=== PATIENT | male | born 1950 | race Caucasian/White ===

== ENCOUNTER 2019-12-22 18:25 | Inpatient (IN) | payer MEDICARE, MEDICAID ==
[~2019-12-22] VITALS: Ht 167.6 cm; Wt 102.1 kg
[~2019-12-22 18:25] MED LIST: AMLO10TA80 MT; AMLO5TAB88 PO; ASPI-1160 PO; CLOP75TA15 PO; EMPA10TA MT; GLIP5TAB3 MT; LIP40 PO; NITR100C MT
[2019-12-22 20:00] VITALS: BP 124/66
[2019-12-22] MEDS ORDERED: DEXTROSE 50% WATER 50ML SYRINGE IV PRN (20:30)
[2019-12-22 20:39] VITALS: BP 175/109
[2019-12-22] MEDS: ENOXAPARIN 40MG/0.4ML SYR SUBCUT SCH (20:59)
[2019-12-22] MEDS: ATORVASTATIN CALCIUM 40MG TABLET PO SCH (20:59)
[2019-12-22] MEDS: BLOOD SUGAR DIAGNOSTIC STRIP TEST SCH (21:05)
[2019-12-22] MEDS: INSULIN LISPRO 100 UNITS/ML SUBCUT SCH (22:27)
[2019-12-23] MEDS: INSULIN LISPRO 100 UNITS/ML SUBCUT SCH ×4 (06:39→22:04)
[2019-12-23] MEDS: BLOOD SUGAR DIAGNOSTIC STRIP TEST SCH ×4 (06:39→21:49)
[2019-12-23 08:00] VITALS: BP 161/44
[2019-12-23 09:00] VITALS: BP 149/54
[2019-12-23] MEDS: ASPIRIN 81MG TABLET PO SCH (09:02)
[2019-12-23] MEDS: CLOPIDOGREL 75MG TABLET PO SCH (09:02)
[2019-12-23] MEDS: ENOXAPARIN 40MG/0.4ML SYR SUBCUT SCH (09:02)
[2019-12-23] MEDS: AMLODIPINE 5MG TABLET PO SCH (09:03)
[2019-12-23] MEDS ORDERED: ENOXAPARIN 30MG/0.3ML SYR SUBCUT SCH (16:01)
[2019-12-23] MEDS: DOCUSATE SODIUM 100MG CAPSULE PO SCH (17:29)
[2019-12-23 20:00] VITALS: BP 154/88
[2019-12-23] MEDS: ENOXAPARIN 30MG/0.3ML SYR SUBCUT SCH (21:48)
[2019-12-23] MEDS: ATORVASTATIN CALCIUM 40MG TABLET PO SCH (21:48)
[2019-12-24 06:31] LABS: CHLORIDE 106 mEq/L (98-107)
[2019-12-24] MEDS: BLOOD SUGAR DIAGNOSTIC STRIP TEST SCH ×4 (06:57→21:21)
[2019-12-24] MEDS: INSULIN LISPRO 100 UNITS/ML SUBCUT SCH ×4 (06:57→21:42)
[2019-12-24 07:00] VITALS: BP 147/84
[2019-12-24] MEDS: AMLODIPINE 5MG TABLET PO SCH (08:14)
[2019-12-24] MEDS: CLOPIDOGREL 75MG TABLET PO SCH (08:14)
[2019-12-24] MEDS: ASPIRIN 81MG TABLET PO SCH (08:14)
[2019-12-24] MEDS: ENOXAPARIN 30MG/0.3ML SYR SUBCUT SCH ×2 (08:14→21:20)
[2019-12-24] MEDS: DOCUSATE SODIUM 100MG CAPSULE PO SCH ×2 (08:14→17:20)
[2019-12-24] MEDS: METFORMIN HCL 500MG TABLET PO SCH ×2 (08:16→17:21)
[2019-12-24 20:00] VITALS: BP 164/87
[2019-12-24] MEDS: ATORVASTATIN CALCIUM 40MG TABLET PO SCH (21:20)
[2019-12-25] MEDS: BLOOD SUGAR DIAGNOSTIC STRIP TEST SCH ×4 (06:17→21:31)
[2019-12-25] MEDS: INSULIN LISPRO 100 UNITS/ML SUBCUT SCH ×4 (07:02→21:35)
[2019-12-25 07:30] VITALS: BP 135/81
[2019-12-25] MEDS: DOCUSATE SODIUM 100MG CAPSULE PO SCH ×2 (08:13→16:49)
[2019-12-25] MEDS: CLOPIDOGREL 75MG TABLET PO SCH (08:13)
[2019-12-25] MEDS: ASPIRIN 81MG TABLET PO SCH (08:18)
[2019-12-25] MEDS: ENOXAPARIN 30MG/0.3ML SYR SUBCUT SCH ×2 (08:18→21:27)
[2019-12-25] MEDS: AMLODIPINE 5MG TABLET PO SCH (08:18)
[2019-12-25] MEDS: METFORMIN HCL 500MG TABLET PO SCH ×2 (08:18→16:49)
[2019-12-25] MEDS ORDERED: NA PHOS,M-B/NA PHOS,DI-BA ENEMA 118ML PR NR (17:00)
[2019-12-25] MEDS ORDERED: BISACODYL 10MG SUPP PR PRN (17:00)
[2019-12-25] MEDS: BISACODYL 5MG TABLET PO PRN (18:04)
[2019-12-25 20:00] VITALS: BP 136/77
[2019-12-25] MEDS: ATORVASTATIN CALCIUM 40MG TABLET PO SCH (21:26)
[2019-12-26] MEDS: BLOOD SUGAR DIAGNOSTIC STRIP TEST SCH ×4 (06:20→20:49)
[2019-12-26] MEDS: INSULIN LISPRO 100 UNITS/ML SUBCUT SCH ×4 (06:22→20:52)
[2019-12-26 08:00] VITALS: BP 139/84
[2019-12-26] MEDS: ASPIRIN 81MG TABLET PO SCH (09:22)
[2019-12-26] MEDS: AMLODIPINE 5MG TABLET PO SCH (09:23)
[2019-12-26] MEDS: METFORMIN HCL 500MG TABLET PO SCH ×2 (09:24→17:32)
[2019-12-26] MEDS: CLOPIDOGREL 75MG TABLET PO SCH (09:24)
[2019-12-26] MEDS: DOCUSATE SODIUM 100MG CAPSULE PO SCH ×2 (09:24→17:32)
[2019-12-26] MEDS: ENOXAPARIN 30MG/0.3ML SYR SUBCUT SCH ×2 (09:31→20:33)
[2019-12-26 20:00] VITALS: BP 157/97
[2019-12-26] MEDS: ATORVASTATIN CALCIUM 40MG TABLET PO SCH (20:32)
[2019-12-27] MEDS: BLOOD SUGAR DIAGNOSTIC STRIP TEST SCH ×4 (06:29→20:51)
[2019-12-27] MEDS: INSULIN LISPRO 100 UNITS/ML SUBCUT SCH ×4 (06:39→20:52)
[2019-12-27 08:00] VITALS: BP 154/102
[2019-12-27] MEDS: CLOPIDOGREL 75MG TABLET PO SCH (08:38)
[2019-12-27] MEDS: DOCUSATE SODIUM 100MG CAPSULE PO SCH ×2 (08:38→16:57)
[2019-12-27] MEDS: ASPIRIN 81MG TABLET PO SCH (08:38)
[2019-12-27] MEDS: METFORMIN HCL 500MG TABLET PO SCH ×2 (08:38→16:57)
[2019-12-27] MEDS: AMLODIPINE 5MG TABLET PO SCH (08:39)
[2019-12-27] MEDS: ENOXAPARIN 30MG/0.3ML SYR SUBCUT SCH ×2 (08:39→20:48)
[2019-12-27] MEDS: BISACODYL 5MG TABLET PO PRN (16:57)
[2019-12-27] MEDS ORDERED: CLONIDINE 0.1MG TABLET PO PRN (18:15)
[2019-12-27 20:00] VITALS: BP 137/83
[2019-12-27] MEDS: ATORVASTATIN CALCIUM 40MG TABLET PO SCH (20:48)
[2019-12-28] MEDS: BLOOD SUGAR DIAGNOSTIC STRIP TEST SCH ×4 (06:15→21:00)
[2019-12-28] MEDS: INSULIN LISPRO 100 UNITS/ML SUBCUT SCH ×4 (06:50→22:27)
[2019-12-28 07:13] LABS: BASOPHILS % 0.7 % (0.0-2.0); EOSINOPHILS % 1.6 % (0.0-5.0); HEMATOCRIT. 46.5 % (42.0-52.0); LYMPHOCYTES % 23.3 % (20.0-50.0); MEAN CORPUSCULAR HEMOGLOBIN 30.2 pg (28.0-32.0); MEAN CORPUSCULAR VOLUME 87.8 fL (80.0-94.0); MONOCYTES % 11.9 % (2.0-8.0); NEUTROPHILS % 62.5 % (40.0-76.0); PLATELET 368 x1000/uL (130-400); RED BLOOD CELL COUNT 5.29 mill/uL (4.7-6.1); RED CELL DISTRIBUTION WIDTH 13.4 % (11.6-14.6)
[2019-12-28 07:52] LABS: CHLORIDE 106 mEq/L (98-107)
[2019-12-28 08:12] VITALS: BP 144/84
[2019-12-28] MEDS: ASPIRIN 81MG TABLET PO SCH (08:28)
[2019-12-28] MEDS: CLOPIDOGREL 75MG TABLET PO SCH (08:28)
[2019-12-28] MEDS: METFORMIN HCL 500MG TABLET PO SCH ×2 (08:28→17:19)
[2019-12-28] MEDS: AMLODIPINE 5MG TABLET PO SCH (08:28)
[2019-12-28] MEDS: DOCUSATE SODIUM 100MG CAPSULE PO SCH ×2 (08:28→17:19)
[2019-12-28] MEDS: ENOXAPARIN 30MG/0.3ML SYR SUBCUT SCH ×2 (08:29→22:24)
[2019-12-28 20:00] VITALS: BP 137/84
[2019-12-28] MEDS: ATORVASTATIN CALCIUM 40MG TABLET PO SCH (22:24)
[2019-12-29] MEDS: BLOOD SUGAR DIAGNOSTIC STRIP TEST SCH ×4 (06:49→21:57)
[2019-12-29] MEDS: INSULIN LISPRO 100 UNITS/ML SUBCUT SCH ×4 (06:56→21:00)
[2019-12-29 07:43] VITALS: BP 139/79
[2019-12-29] MEDS: ASPIRIN 81MG TABLET PO SCH (08:29)
[2019-12-29] MEDS: METFORMIN HCL 500MG TABLET PO SCH ×2 (08:29→16:44)
[2019-12-29] MEDS: ENOXAPARIN 30MG/0.3ML SYR SUBCUT SCH ×2 (08:29→21:58)
[2019-12-29] MEDS: CLOPIDOGREL 75MG TABLET PO SCH (08:29)
[2019-12-29] MEDS: DOCUSATE SODIUM 100MG CAPSULE PO SCH ×2 (08:29→16:44)
[2019-12-29] MEDS: AMLODIPINE 5MG TABLET PO SCH (08:30)
[2019-12-29 20:00] VITALS: BP 119/74
[2019-12-29] MEDS: ATORVASTATIN CALCIUM 40MG TABLET PO SCH (21:56)
[2019-12-30] MEDS: BLOOD SUGAR DIAGNOSTIC STRIP TEST SCH ×4 (06:12→20:58)
[2019-12-30] MEDS: INSULIN LISPRO 100 UNITS/ML SUBCUT SCH ×4 (06:25→21:08)
[2019-12-30 08:23] VITALS: BP 128/83
[2019-12-30] MEDS: ASPIRIN 81MG TABLET PO SCH (08:59)
[2019-12-30] MEDS: METFORMIN HCL 500MG TABLET PO SCH ×2 (08:59→16:39)
[2019-12-30] MEDS: CLOPIDOGREL 75MG TABLET PO SCH (08:59)
[2019-12-30] MEDS: DOCUSATE SODIUM 100MG CAPSULE PO SCH ×2 (09:00→16:39)
[2019-12-30] MEDS: AMLODIPINE 5MG TABLET PO SCH (09:01)
[2019-12-30] MEDS: ENOXAPARIN 30MG/0.3ML SYR SUBCUT SCH ×2 (09:01→20:58)
[2019-12-30 20:00] VITALS: BP 134/80
[2019-12-30] MEDS: ATORVASTATIN CALCIUM 40MG TABLET PO SCH (20:58)
[2019-12-31] MEDS: BLOOD SUGAR DIAGNOSTIC STRIP TEST SCH ×4 (05:47→20:53)
[2019-12-31] MEDS: INSULIN LISPRO 100 UNITS/ML SUBCUT SCH ×4 (05:54→20:53)
[2019-12-31 08:26] VITALS: BP 129/79
[2019-12-31] MEDS: AMLODIPINE 5MG TABLET PO SCH (09:48)
[2019-12-31] MEDS: DOCUSATE SODIUM 100MG CAPSULE PO SCH ×2 (09:48→16:19)
[2019-12-31] MEDS: CLOPIDOGREL 75MG TABLET PO SCH (09:48)
[2019-12-31] MEDS: ASPIRIN 81MG TABLET PO SCH (09:48)
[2019-12-31] MEDS: METFORMIN HCL 500MG TABLET PO SCH ×2 (09:48→16:20)
[2019-12-31] MEDS: ENOXAPARIN 30MG/0.3ML SYR SUBCUT SCH ×2 (09:49→20:39)
[2019-12-31 20:00] VITALS: BP 116/83
[2019-12-31] MEDS: ATORVASTATIN CALCIUM 40MG TABLET PO SCH (20:39)
[2020-01-01] MEDS: BLOOD SUGAR DIAGNOSTIC STRIP TEST SCH ×4 (06:31→21:43)
[2020-01-01] MEDS: INSULIN LISPRO 100 UNITS/ML SUBCUT SCH ×4 (06:39→22:55)
[2020-01-01 08:00] VITALS: BP 138/78
[2020-01-01] MEDS: ENOXAPARIN 30MG/0.3ML SYR SUBCUT SCH ×2 (09:23→21:42)
[2020-01-01] MEDS: AMLODIPINE 5MG TABLET PO SCH (09:23)
[2020-01-01] MEDS: CLOPIDOGREL 75MG TABLET PO SCH (09:24)
[2020-01-01] MEDS: DOCUSATE SODIUM 100MG CAPSULE PO SCH ×2 (09:24→17:19)
[2020-01-01] MEDS: ASPIRIN 81MG TABLET PO SCH (09:24)
[2020-01-01] MEDS: METFORMIN HCL 500MG TABLET PO SCH ×2 (09:24→17:19)
[2020-01-01 20:00] VITALS: BP 163/84
[2020-01-01] MEDS: BISACODYL 5MG TABLET PO PRN ×2 (21:42→21:57)
[2020-01-01] MEDS: ATORVASTATIN CALCIUM 40MG TABLET PO SCH (21:43)
[2020-01-02] MEDS: BLOOD SUGAR DIAGNOSTIC STRIP TEST SCH ×4 (06:32→21:40)
[2020-01-02] MEDS: INSULIN LISPRO 100 UNITS/ML SUBCUT SCH ×4 (07:05→21:00)
[2020-01-02 07:30] VITALS: BP 121/72
[2020-01-02] MEDS: DOCUSATE SODIUM 100MG CAPSULE PO SCH ×2 (08:18→17:42)
[2020-01-02] MEDS: CLOPIDOGREL 75MG TABLET PO SCH (08:18)
[2020-01-02] MEDS: ASPIRIN 81MG TABLET PO SCH (08:18)
[2020-01-02] MEDS: METFORMIN HCL 500MG TABLET PO SCH ×2 (08:19→17:42)
[2020-01-02] MEDS: AMLODIPINE 5MG TABLET PO SCH (08:19)
[2020-01-02] MEDS: ENOXAPARIN 30MG/0.3ML SYR SUBCUT SCH ×2 (08:19→21:40)
[2020-01-02 20:00] VITALS: BP 131/74
[2020-01-02] MEDS: ATORVASTATIN CALCIUM 40MG TABLET PO SCH (21:37)
[2020-01-03] MEDS: BLOOD SUGAR DIAGNOSTIC STRIP TEST SCH ×4 (06:57→20:54)
[2020-01-03] MEDS: INSULIN LISPRO 100 UNITS/ML SUBCUT SCH ×4 (06:57→21:03)
[2020-01-03 08:14] VITALS: BP 163/93
[2020-01-03] MEDS: METFORMIN HCL 500MG TABLET PO SCH ×2 (08:55→17:23)
[2020-01-03] MEDS: CLOPIDOGREL 75MG TABLET PO SCH (08:55)
[2020-01-03] MEDS: AMLODIPINE 5MG TABLET PO SCH (08:55)
[2020-01-03] MEDS: ASPIRIN 81MG TABLET PO SCH (08:55)
[2020-01-03] MEDS: ENOXAPARIN 30MG/0.3ML SYR SUBCUT SCH ×2 (08:55→20:54)
[2020-01-03] MEDS: DOCUSATE SODIUM 100MG CAPSULE PO SCH ×2 (08:55→17:23)
[2020-01-03 14:28] LABS: BG BASE EXCESS 1.4 mmol/L (-2.0-2.0); BG CARBOXYHEMOGLOBIN 0.6 % (0.5-1.5); BG DEOXYHEMOGLOBIN 3.4 % (0.0-5.0); BG FRACTION INSPIRED OXYGEN 21; BG HCO3 ACT 24.3 mmol/L (22.0-26.0); BG METHEMOGLOBIN 0.3 % (0.0-1.5); BG OXYGEN SATURATION 96.6 % (92.0-98.5); BG OXYHEMOGLOBIN 95.7 % (94.0-97.0); BG PCO2 33.8 mmHg (35.0-45.0); BG PH 7.475 (7.350-7.450); BG PO2 83.6 mmHg (75.0-100.0); BG SAMPLE SITE LEFT RADIAL; BG TOTAL HEMOGLOBIN 15.5 g/dL (12.0-18.0); BG VENT MODE ROOM AIR
[2020-01-03 20:00] VITALS: BP 136/74
[2020-01-03] MEDS: ATORVASTATIN CALCIUM 40MG TABLET PO SCH (20:53)
[2020-01-04] MEDS: BLOOD SUGAR DIAGNOSTIC STRIP TEST SCH ×4 (06:06→21:25)
[2020-01-04] MEDS: INSULIN LISPRO 100 UNITS/ML SUBCUT SCH ×4 (06:09→21:00)
[2020-01-04 08:19] VITALS: BP 131/108
[2020-01-04] MEDS: CLOPIDOGREL 75MG TABLET PO SCH (09:05)
[2020-01-04] MEDS: ASPIRIN 81MG TABLET PO SCH (09:05)
[2020-01-04] MEDS: AMLODIPINE 5MG TABLET PO SCH (09:05)
[2020-01-04] MEDS: METFORMIN HCL 500MG TABLET PO SCH ×2 (09:06→17:20)
[2020-01-04] MEDS: DOCUSATE SODIUM 100MG CAPSULE PO SCH ×2 (09:06→17:21)
[2020-01-04] MEDS: ENOXAPARIN 30MG/0.3ML SYR SUBCUT SCH ×2 (09:06→21:11)
[2020-01-04 20:00] VITALS: BP 134/75
[2020-01-04] MEDS: ATORVASTATIN CALCIUM 40MG TABLET PO SCH (21:10)
[2020-01-05] MEDS: BLOOD SUGAR DIAGNOSTIC STRIP TEST SCH ×4 (05:49→21:48)
[2020-01-05] MEDS: INSULIN LISPRO 100 UNITS/ML SUBCUT SCH ×4 (05:49→21:00)
[2020-01-05 08:01] VITALS: BP 145/83
[2020-01-05] MEDS: CLOPIDOGREL 75MG TABLET PO SCH (08:26)
[2020-01-05] MEDS: ENOXAPARIN 30MG/0.3ML SYR SUBCUT SCH ×2 (08:26→21:42)
[2020-01-05] MEDS: DOCUSATE SODIUM 100MG CAPSULE PO SCH ×2 (08:26→16:15)
[2020-01-05] MEDS: METFORMIN HCL 500MG TABLET PO SCH ×2 (08:26→16:15)
[2020-01-05] MEDS: AMLODIPINE 5MG TABLET PO SCH (08:26)
[2020-01-05] MEDS: ASPIRIN 81MG TABLET PO SCH (08:26)
[2020-01-05 20:00] VITALS: BP 142/77
[2020-01-05] MEDS: ATORVASTATIN CALCIUM 40MG TABLET PO SCH (21:42)
[2020-01-06 05:15] LABS: CHLORIDE 106 mEq/L (98-107)
[2020-01-06] MEDS: INSULIN LISPRO 100 UNITS/ML SUBCUT SCH ×4 (05:42→20:46)
[2020-01-06] MEDS: BLOOD SUGAR DIAGNOSTIC STRIP TEST SCH ×4 (05:42→20:41)
[2020-01-06 06:27] LABS: BASOPHILS % 0.9 % (0.0-2.0); EOSINOPHILS % 2.3 % (0.0-5.0); HEMATOCRIT. 44.1 % (42.0-52.0); HEMOGLOBIN. 15.5 g/dL (14.0-18.0); LYMPHOCYTES % 21.9 % (20.0-50.0); MEAN CORPUSCULAR HEMOGLOBIN 30.6 pg (28.0-32.0); MEAN CORPUSCULAR VOLUME 86.9 fL (80.0-94.0); MEAN PLATELET VOLUME 8.5 fl (7.4-10.4); MONOCYTES % 13.9 % (2.0-8.0); PLATELET 358 x1000/uL (130-400); RED BLOOD CELL COUNT 5.08 mill/uL (4.7-6.1); RED CELL DISTRIBUTION WIDTH 13.3 % (11.6-14.6)
[2020-01-06 08:20] VITALS: BP 137/94
[2020-01-06] MEDS: CLOPIDOGREL 75MG TABLET PO SCH (09:06)
[2020-01-06] MEDS: ASPIRIN 81MG TABLET PO SCH (09:06)
[2020-01-06] MEDS: DOCUSATE SODIUM 100MG CAPSULE PO SCH ×2 (09:06→17:22)
[2020-01-06] MEDS: ENOXAPARIN 30MG/0.3ML SYR SUBCUT SCH ×2 (09:06→20:41)
[2020-01-06] MEDS: AMLODIPINE 5MG TABLET PO SCH (09:06)
[2020-01-06] MEDS: METFORMIN HCL 500MG TABLET PO SCH ×2 (09:06→17:22)
[2020-01-06 20:00] VITALS: BP 131/76
[2020-01-06] MEDS: ATORVASTATIN CALCIUM 40MG TABLET PO SCH (20:40)
[2020-01-07] MEDS: BLOOD SUGAR DIAGNOSTIC STRIP TEST SCH ×4 (05:44→20:36)
[2020-01-07] MEDS: CLOPIDOGREL 75MG TABLET PO SCH (08:15)
[2020-01-07] MEDS: AMLODIPINE 5MG TABLET PO SCH (08:16)
[2020-01-07] MEDS: ENOXAPARIN 30MG/0.3ML SYR SUBCUT SCH ×2 (08:16→20:35)
[2020-01-07] MEDS: METFORMIN HCL 500MG TABLET PO SCH ×2 (08:16→16:36)
[2020-01-07] MEDS: DOCUSATE SODIUM 100MG CAPSULE PO SCH ×2 (08:16→17:18)
[2020-01-07] MEDS: ASPIRIN 81MG TABLET PO SCH (08:16)
[2020-01-07 08:29] VITALS: BP 130/92
[2020-01-07] MEDS: INSULIN LISPRO 100 UNITS/ML SUBCUT SCH ×5 (09:00→20:41)
[2020-01-07 10:59] LABS: CHLORIDE 105 mEq/L (98-107)
[2020-01-07 11:14] LABS: BASOPHILS % 0.9 % (0.0-2.0); EOSINOPHILS % 1.4 % (0.0-5.0); HEMATOCRIT. 45.9 % (42.0-52.0); HEMOGLOBIN. 15.8 g/dL (14.0-18.0); LYMPHOCYTES % 23.6 % (20.0-50.0); MEAN CORPUSCULAR HEMOGLOBIN 29.9 pg (28.0-32.0); MEAN CORPUSCULAR VOLUME 86.8 fL (80.0-94.0); MONOCYTES % 12.2 % (2.0-8.0); NEUTROPHILS % 61.9 % (40.0-76.0); PLATELET 368 x1000/uL (130-400); RED BLOOD CELL COUNT 5.29 mill/uL (4.7-6.1); RED CELL DISTRIBUTION WIDTH 13.1 % (11.6-14.6)
[2020-01-07 20:00] VITALS: BP 122/77
[2020-01-07] MEDS: ATORVASTATIN CALCIUM 40MG TABLET PO SCH (20:35)
[2020-01-07] MEDS: BISACODYL 5MG TABLET PO PRN (20:36)
[2020-01-08] MEDS: BLOOD SUGAR DIAGNOSTIC STRIP TEST SCH ×4 (06:16→21:31)
[2020-01-08] MEDS: INSULIN LISPRO 100 UNITS/ML SUBCUT SCH ×4 (06:19→21:00)
[2020-01-08 07:57] VITALS: BP 128/82
[2020-01-08] MEDS: BISACODYL 5MG TABLET PO PRN (08:25)
[2020-01-08] MEDS: DOCUSATE SODIUM 100MG CAPSULE PO SCH ×2 (08:25→17:08)
[2020-01-08] MEDS: METFORMIN HCL 500MG TABLET PO SCH ×2 (08:25→17:08)
[2020-01-08] MEDS: ASPIRIN 81MG TABLET PO SCH (08:25)
[2020-01-08] MEDS: AMLODIPINE 5MG TABLET PO SCH (08:25)
[2020-01-08] MEDS: CLOPIDOGREL 75MG TABLET PO SCH (08:25)
[2020-01-08] MEDS: ENOXAPARIN 30MG/0.3ML SYR SUBCUT SCH ×2 (08:27→21:30)
[2020-01-08 20:00] VITALS: BP 113/74
[2020-01-08] MEDS: ATORVASTATIN CALCIUM 40MG TABLET PO SCH (21:30)
[2020-01-09] MEDS: BLOOD SUGAR DIAGNOSTIC STRIP TEST SCH ×4 (06:30→21:06)
[2020-01-09 08:00] VITALS: BP 130/86
[2020-01-09] MEDS: ENOXAPARIN 30MG/0.3ML SYR SUBCUT SCH ×2 (08:13→20:35)
[2020-01-09] MEDS: DOCUSATE SODIUM 100MG CAPSULE PO SCH ×2 (08:13→17:33)
[2020-01-09] MEDS: METFORMIN HCL 500MG TABLET PO SCH ×2 (08:13→17:33)
[2020-01-09] MEDS: ASPIRIN 81MG TABLET PO SCH (08:14)
[2020-01-09] MEDS: CLOPIDOGREL 75MG TABLET PO SCH (08:14)
[2020-01-09] MEDS: AMLODIPINE 5MG TABLET PO SCH (08:14)
[2020-01-09] MEDS: INSULIN LISPRO 100 UNITS/ML SUBCUT SCH ×4 (09:00→21:26)
[2020-01-09 20:00] VITALS: BP 145/85
[2020-01-09] MEDS: ATORVASTATIN CALCIUM 40MG TABLET PO SCH (20:34)
[2020-01-10] MEDS: BLOOD SUGAR DIAGNOSTIC STRIP TEST SCH ×4 (06:16→20:46)
[2020-01-10] MEDS: INSULIN LISPRO 100 UNITS/ML SUBCUT SCH ×4 (06:16→20:46)
[2020-01-10 08:00] VITALS: BP 116/70
[2020-01-10] MEDS: DOCUSATE SODIUM 100MG CAPSULE PO SCH ×2 (09:25→17:53)
[2020-01-10] MEDS: CLOPIDOGREL 75MG TABLET PO SCH (09:25)
[2020-01-10] MEDS: AMLODIPINE 5MG TABLET PO SCH (09:25)
[2020-01-10] MEDS: METFORMIN HCL 500MG TABLET PO SCH ×2 (09:25→17:52)
[2020-01-10] MEDS: ASPIRIN 81MG TABLET PO SCH (09:25)
[2020-01-10] MEDS: ENOXAPARIN 30MG/0.3ML SYR SUBCUT SCH ×2 (09:26→20:43)
[2020-01-10 20:00] VITALS: BP 124/73
[2020-01-10] MEDS: ATORVASTATIN CALCIUM 40MG TABLET PO SCH (20:42)
[2020-01-11] MEDS: INSULIN LISPRO 100 UNITS/ML SUBCUT SCH ×4 (06:26→21:00)
[2020-01-11] MEDS: BLOOD SUGAR DIAGNOSTIC STRIP TEST SCH ×4 (06:26→21:00)
[2020-01-11 08:16] VITALS: BP 146/51
[2020-01-11] MEDS: CLOPIDOGREL 75MG TABLET PO SCH (08:34)
[2020-01-11] MEDS: DOCUSATE SODIUM 100MG CAPSULE PO SCH ×2 (08:34→17:21)
[2020-01-11] MEDS: ASPIRIN 81MG TABLET PO SCH (08:34)
[2020-01-11] MEDS: METFORMIN HCL 500MG TABLET PO SCH ×2 (08:34→17:21)
[2020-01-11] MEDS: AMLODIPINE 5MG TABLET PO SCH (08:35)
[2020-01-11] MEDS: ENOXAPARIN 30MG/0.3ML SYR SUBCUT SCH ×2 (08:35→22:21)
[2020-01-11 20:00] VITALS: BP 126/72
[2020-01-11] MEDS: ATORVASTATIN CALCIUM 40MG TABLET PO SCH (22:21)
[2020-01-12] MEDS: INSULIN LISPRO 100 UNITS/ML SUBCUT SCH ×4 (06:26→21:00)
[2020-01-12] MEDS: BLOOD SUGAR DIAGNOSTIC STRIP TEST SCH ×4 (06:26→21:16)
[2020-01-12 08:17] VITALS: BP 122/79
[2020-01-12] MEDS: METFORMIN HCL 500MG TABLET PO SCH ×2 (08:51→16:40)
[2020-01-12] MEDS: ENOXAPARIN 30MG/0.3ML SYR SUBCUT SCH ×2 (08:52→21:14)
[2020-01-12] MEDS: CLOPIDOGREL 75MG TABLET PO SCH (08:52)
[2020-01-12] MEDS: AMLODIPINE 5MG TABLET PO SCH (08:52)
[2020-01-12] MEDS: DOCUSATE SODIUM 100MG CAPSULE PO SCH ×2 (08:52→16:40)
[2020-01-12] MEDS: ASPIRIN 81MG TABLET PO SCH (08:52)
[2020-01-12 20:00] VITALS: BP 129/73
[2020-01-12] MEDS: ATORVASTATIN CALCIUM 40MG TABLET PO SCH (21:14)
[2020-01-13] MEDS: INSULIN LISPRO 100 UNITS/ML SUBCUT SCH ×4 (06:34→21:00)
[2020-01-13] MEDS: BLOOD SUGAR DIAGNOSTIC STRIP TEST SCH ×4 (06:34→21:17)
[2020-01-13 07:49] VITALS: BP 130/87
[2020-01-13] MEDS: DOCUSATE SODIUM 100MG CAPSULE PO SCH ×2 (09:12→17:45)
[2020-01-13] MEDS: AMLODIPINE 5MG TABLET PO SCH (09:12)
[2020-01-13] MEDS: CLOPIDOGREL 75MG TABLET PO SCH (09:12)
[2020-01-13] MEDS: METFORMIN HCL 500MG TABLET PO SCH ×2 (09:12→17:45)
[2020-01-13] MEDS: ASPIRIN 81MG TABLET PO SCH (09:12)
[2020-01-13] MEDS: ENOXAPARIN 30MG/0.3ML SYR SUBCUT SCH ×2 (09:13→21:11)
[2020-01-13 20:00] VITALS: BP 134/78
[2020-01-13] MEDS: ATORVASTATIN CALCIUM 40MG TABLET PO SCH (21:10)
[2020-01-14] MEDS: BLOOD SUGAR DIAGNOSTIC STRIP TEST SCH ×4 (06:10→20:29)
[2020-01-14] MEDS: INSULIN LISPRO 100 UNITS/ML SUBCUT SCH ×4 (06:10→20:29)
[2020-01-14 08:00] VITALS: BP 129/89
[2020-01-14] MEDS: ENOXAPARIN 30MG/0.3ML SYR SUBCUT SCH ×2 (08:19→20:24)
[2020-01-14] MEDS: ASPIRIN 81MG TABLET PO SCH (08:19)
[2020-01-14] MEDS: CLOPIDOGREL 75MG TABLET PO SCH (08:20)
[2020-01-14] MEDS: AMLODIPINE 5MG TABLET PO SCH (08:20)
[2020-01-14] MEDS: DOCUSATE SODIUM 100MG CAPSULE PO SCH ×2 (08:20→16:34)
[2020-01-14] MEDS: METFORMIN HCL 500MG TABLET PO SCH ×2 (08:20→16:34)
[2020-01-14] MEDS: BISACODYL 5MG TABLET PO PRN (16:34)
[2020-01-14 20:00] VITALS: BP 132/77
[2020-01-14] MEDS: ATORVASTATIN CALCIUM 40MG TABLET PO SCH (20:24)
[2020-01-15] MEDS: BLOOD SUGAR DIAGNOSTIC STRIP TEST SCH ×2 (06:15→11:57)
[2020-01-15] MEDS: INSULIN LISPRO 100 UNITS/ML SUBCUT SCH ×2 (06:15→12:00)
[2020-01-15 08:00] VITALS: BP 129/88
[2020-01-15] MEDS: CLOPIDOGREL 75MG TABLET PO SCH (08:30)
[2020-01-15] MEDS: AMLODIPINE 5MG TABLET PO SCH (08:31)
[2020-01-15] MEDS: DOCUSATE SODIUM 100MG CAPSULE PO SCH (08:31)
[2020-01-15] MEDS: ASPIRIN 81MG TABLET PO SCH (08:31)
[2020-01-15] MEDS: METFORMIN HCL 500MG TABLET PO SCH (08:32)
[2020-01-15] MEDS: ENOXAPARIN 30MG/0.3ML SYR SUBCUT SCH (08:32)
[2020-01-15 10:38] VITALS: BP 129/88
[2020-01-15] MEDS ORDERED: ASPI-1160 PO (12:59)
[2020-01-15] MEDS ORDERED: LIP40 PO (12:59)
[2020-01-15] MEDS ORDERED: AMLO5TAB88 PO (12:59)
[2020-01-15] MEDS ORDERED: CLOP75TA15 PO (12:59)
[2020-01-15] MEDS ORDERED: METF500T60 PO (13:01)
== END 2020-01-15 15:00 | disposition home or self-care (01) | DRG 56 ==
LOC: EDBD 18:25
PROVIDERS: ADMIT Psychiatry & Neurology Neurology; ATTEND Family Medicine
PROC: 4A00X4Z Measurement of Central Nervous Electrical Activity, External Approach (ICD-10-PCS; principal; 2019-12-22)
DX: I69.351 Hemiplegia and hemiparesis following cerebral infarction affecting right dominant side (principal); I63.9 Cerebral infarction, unspecified; E66.2 Morbid (severe) obesity with alveolar hypoventilation; R13.10 Dysphagia, unspecified; E11.9 Type 2 diabetes mellitus without complications; I10 Essential (primary) hypertension; E78.5 Hyperlipidemia, unspecified; F41.9 Anxiety disorder, unspecified; R47.1 Dysarthria and anarthria; I11.9 Hypertensive heart disease without heart failure; Z60.2 Problems related to living alone; R26.9 Unspecified abnormalities of gait and mobility; Z79.82 Long term (current) use of aspirin; Z68.36 Body mass index [BMI] 36.0-36.9, adult
CPT/HCPCS: 36415; 36600; 80048; 80053; 82375; 82805; 82962; 85025; 92523; 92610; 93970; 97110; 97112; 97116; 97163; 97166; 97530; 97535; A4565; J1650; J1815